=== PATIENT | female | born 1955 | race Caucasian/White ===

== ENCOUNTER 2017-09-23 19:14 | Observation (INO) | payer BC ==
--- NOTE | 2017-09-23 19:33 | EDM.PDOC ---
ED HPI GENERAL MEDICAL PROBLEM - General Chief Complaint: General Stated Complaint: dizzy, nausea, chest pain Time Seen by Provider: 09/23/17 19:20 Source of Information: Reports: Patient, Family (), Old Records ([facility] chart/EMR) History Limitations: Reports: No Limitations - History of Present Illness INITIAL COMMENTS - FREE TEXT/NARRATIVE: The patient was brought to the emergency room via private automobile by her for evaluation of 5/10 left-sided sharp chest pain with symptoms occurring on an intermittent basis for the last several days. Today's symptoms reappeared at about 19:00 hours this evening with a blood pressure of 188/107 at that time. The patient did take 2 coated baby aspirin with onset of the above symptoms, which include some additional exacerbation of her chronic dizziness and some mild nausea. He has also noticed some increased dependent edema during the last few months. The patient denies any other chest pain/ pressure, heart flutter, orthostasis, orthopnea, diaphoresis, paresthesias, recent decreased exercise tolerance, or any other anginal-type symptoms. No recent history of abdominal pain, heartburn, nausea, diarrhea, melena, gross hematochezia, or any food intolerance, including fatty foods, etc. with his last bowel movement normal at about 7 PM this evening. The patient also denies any recent fever, cough, wheezing, dyspnea, etc. with no known previous exposure to infection despite mild fever in the emergency room today. No history of recent headaches, visual changes, diplopia, change in mental status, or other change in neurological status. Onset: Sudden, Gradual Onset Date: 09/23/17 Onset Time: 19:00 Duration: Day(s): (As above) Location: Reports: Chest. Denies: Head, Face, Neck, Abdomen, Back, Pelvis, Upper Extremity, Left, Upper Extremity, Right, Lower Extremity, Left, Generalized, Radiates to Quality: Reports: Same as Previous Episode, Sharp Severity: Moderate Improves with: Reports: None Worsens with: Reports: None Context: Reports: Other (As above) Associated Symptoms: Reports: Chest Pain. 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: Aspirin (As above) Left Chest Pain Score (Numeric/FACES): 5 - Related Data Allergies Allergy/AdvReac Type Severity Reaction Status Date / Time amoxicillin trihydrate Allergy Unknown Other Verified 09/23/17 19:21 [From Augmentin] hydrocodone bitartrate Allergy Unknown Other Verified 09/23/17 19:21 [From Lortab] potassium clavulanate Allergy Unknown Other Verified 09/23/17 19:21 [From Augmentin] Home Meds: Home Meds FLUoxetine HCl [Prozac] 20 mg PO DAILY 05/11/15 [History] Omeprazole/Sodium Bicarbonate [Zegerid 20 MG] 20 mg PO DAILY 05/11/15 [History] Past Medical History HEENT History: Reports: Impaired Vision, Other (See Below). Denies: Allergic Rhinitis, Cataract, Glaucoma, Hard of Hearing, Macular Degeneration, Retinal Detachment Other HEENT History: She wears glasses Cardiovascular History: Reports: Heart Murmur, Hypertension, Other (See Below). Denies: Afib, Aneurysm, Arrhythmia, Blood Clots/VTE/DVT, CAD, Heart Failure, High Cholesterol, RI, PVD, Syncope Other Cardiovascular History: Benign heart murmur as a child with spontaneous resolution; borderline hypertension not requiring medical therapy to this point Respiratory History: Reports: Asthma, Intubation, Previous. Denies: Bronchitis , Recurrent, COPD, PE, Pneumonia, Recurrent, Pneumothorax, Sleep Apnea Gastrointestinal History: Reports: Cholelithiasis, Colon Polyp, Diverticulosis, Gastritis, GERD, Other (See Below). Denies: Celiac Disease, Chronic Constipation, Chronic Diarrhea, GI Bleed, Hepatitis, Helicobacter Pylori, Hiatal Hernia, Irritable Bowel Syndrome, Jaundice, Pancreatitis, PUD Other Gastrointestinal History: Hyperplastic colonic polyp at the hepatic flexure 09/09/04; recurrent hyperplastic gastric polyps initially diagnosed on ; previous history of diverticulitis with diverticulosis in the sigmoid region; History of fatty liver; esophagitis Genitourinary History: Reports: None. Denies: Acute Renal Failure, Chronic Renal Insuffiency, Renal Calculus, STD, Urinary Incontinence, UTI, Recurrent [employer] WORKER History: Reports: Dysfunctional Uterine Bleeding, Polycystic Ovaries, . Denies: Endometriosis, Fibroids, Spontaneous : 3 Para: 3 (Full term without complications during pregnancies or deliveries) LMP (Approximate): Menopausal (At age 54) Musculoskeletal History: Reports: Arthritis, Back Pain, Chronic, Fracture, Neck Pain, Chronic, Osteoarthritis, Other (See Below). Denies: Amputation, Gout, Osteoporosis, RA, SLE Other Musculoskeletal History: Right rotator cuff tear requiring surgery as below; left hand fourth finger tuft fracture on 05/01/08 Neurological History: Reports: Headaches, Chronic, Migraines, Vertigo, Other ( See Below). Denies: Cerebral Aneurysms, Concussion, CVA, Head Trauma, MS, Neuropathy, Peripheral, Parkinson's, Seizure, TIA Other Neuro History: Borderline Cerebral microvascular disease CT scan Psychiatric History: Reports: Anxiety, Depression. Denies: Abuse, Victim of, ADD, ADHD, Addiction, Psych Hospitalization(s), PTSD, Suicide Attempt, Suicidal Ideation Endocrine/Metabolic History: Reports: Obesity/BMI 30+. Denies: Diabetes, Type I , Diabetes, Type II, Diabetes Mellitus, Type 3c, Hypothyroidism, IDDM, Osteoporosis Hematologic History: Reports: None. Denies: Anemia, Blood Transfusion(s), Iron Deficiency Immunologic History: Reports: None. Denies: AIDS, HIV, SLE Oncologic (Cancer) History: Reports: None. Denies: Basal Cell Carcinoma, Breast , Colon, Hodgkin's Lymphoma, Leukemia, Lymphoma, Malignant Melanoma, Non-Hodgkin 's Lymphoma, Ovarian, Squamous Cell Carcinoma, Uterine Dermatologic History: Reports: None. Denies: Eczema, Urticaria - Infectious Disease History Infectious Disease History: Reports: Chicken Pox, Measles, Mumps, Scarlet Fever. Denies: C-Difficile, Meningitis, Mononucleosis, MRSA, Rheumatic Fever, Rubella, Shingles, VRE - Past Surgical History Head Surgeries/Procedures: Reports: None HEENT Surgical History: Reports: Adenoidectomy, Oral Surgery, Tonsillectomy, Other (See Below). Denies: Cataract Surgery, Eye Surgery, Laser Surgery, LASIK , Myringotomy w Tube(s), Naso-Sinus Surgery Other HEENT Surgeries/Procedures: Tonsillectomy and adenoidectomy at about age 5 ; [place] teeth extraction 4 in the Cardiovascular Surgical History: Reports: None. Denies: Varicose, Vascular Surgery Respiratory Surgical History: Reports: None. Denies: Thoracentesis GI Surgical History: Reports: Cholecystectomy, Colonoscopy, EGD, Polypectomy, Other (See Below). Denies: Appendectomy, Hernia, Abdominal, Hernia, Inguinal, Hernia Repair/Other Other GI Surgeries/Procedures: Colonoscopy with polypectomy at the hepatic flexure on 09/09/04 with follow-up colonoscopy on 08/31/08; initial EGD with gastric polyp excision on 10/23/03 with repeat EGD gastric polypectomy on 08/31/08 ; upper scopic cholecystectomy with adhesiolysis on 09/23/04 Female Surgical History: Reports: None. Denies: Breast Biopsy, Cystoscopy, D &C, Hysterectomy, Oophorectomy, Tubal Ligation Endocrine Surgical History: Reports: None. Denies: Thyroid Biopsy Neurological Surgical History: Denies: C-Spine, Discectomy, Intracranial, Laminectomy, Lumbar Spine, Sacral Spine, Spinal Fusion, Vertebroplasty Musculoskeletal Surgical History: Reports: Ganglion Cyst (Right dorsal ganglion cyst excision at about age 8), Shoulder Surgery (Open right rotator cuff repair in 2008). Denies: Amputation, Arthroscopic Knee, Arthroscopic Procedure, Carpal Tunnel, Hip Replacement, Joint Replacement, ORIF Oncologic Surgical History: Reports: None Dermatological Surgical History: Reports: None - Past Imaging History Past Imaging History: Reports: CAT Scan (CT of the brain on 01/24/14 with previous evaluation on 02/06/10; CT of the abdomen and pelvis on 05/16/15; CT of the neck soft tissue evaluation on 11/11/16;), Mammogram (Last mammogram on ), MRI (MRI of the right shoulder on 12/05/08), Ultrasound (Right axillary ultrasound on 10/21/13; multiple previous pelvic ultrasounds since 12/27/02 with last evaluation on 10/14/06; abdominal and additional gallbladder ultrasound on 08/13/04) Social & Family History - Family History HEENT: Reports: None. Denies: Allergic Rhinitis, Glaucoma, Macular Degeneration , Retinal Detachment Cardiac: Reports: Aneurysm, CAD, Hypertension, RI, Other (See Below). Denies: Arrhythmia, Blood Clots/VTE/DVT, Bypass, Heart Failure, Heart Murmur, High Cholesterol, Pacemaker, Stent, Syncope Other Cardiac Family History: Father was history of RI 2 at age 55 with no procedures required; AAA repair in his 60s; hypertension in parents; Respiratory: Reports: None. Denies: Asthma, COPD, PE, Pneumothorax, Sleep Apnea GI: Reports: Colon Polyps, GI bleed, PUD, Other (See Below). Denies: Celiac Disease, Cholelithiasis, GERD, Hiatal Hernia, Inflammatory Bowel Disease, Irritable Bowel Syndrome, Pancreatitis Other GI Family History: Father with history of GI bleed secondary to peptic ulcer disease: Father with history of colonic polyps : Reports: None. Denies: Dialysis, Renal Calculus, Renal Disease/ Insufficiency OBGYN: Reports: None. Denies: Dysfunctional uterine bleeding, Endometriosis, Recurrent Spontaneous Musculoskeletal: Reports: None. Denies: Gout, RA, SLE Neurological: Reports: Alzheimers Disease, Dementia, Parkinson's, Other (See Below). Denies: Cerebral Aneurysms, CVA, Migraines, MS, Seizure, TIA Other Neurological Family History: Mother with Alzheimer's disease; father with migraine headaches; Mom with Parkinson's disease Psychiatric: Reports: None. Denies: Abuse, Victim of, ADD, ADHD, Anxiety, Depression, Psych Hospitalization(s), PTSD, Suicide Attempt Endocrine/Metabolic: Reports: Diabetes, type II, Hypothyroidism, Other (See Below). Denies: Diabetes, Type I, IDDM Other Endocrine/Metabolic Family History: Mother with hypothyroidism; parents with AODM Hematologic: Reports: None. Denies: Anemia, B12 Deficiency, SLE Immunologic: Reports: None. Denies: AIDS, HIV, SLE Dermatologic: Reports: None. Denies: Eczema, Psoriasis Oncologic: Reports: Breast, Lung, Other (See Below). Denies: Colon, Hodgkin's Lymphoma, Leukemia, Metastatic, Non-Hodgkin's Lymphoma, Ovarian, Prostate, Skin , Uterine Other Oncologic Family History: Father with fatal lung cancer at age 75 with history of tobacco use; Maternal aunt with breast cancer in her 50s; maternal aunt with fatal stomach cancer in her 70s - Tobacco Use Smoking Status *Q: Former Smoker Tobacco Use Within Last Twelve Months: Cigarettes Years of Tobacco use: 5 Packs/Tins Daily: 2 (Smoked between ages 14 and 19) Used Tobacco, but Quit: Yes Smoking Cessation Information Provided To Patient: No Second Hand Smoke Exposure: No Second Hand Smoke Education Provided: No - Caffeine Use Caffeine Use: Reports: Coffee (4 cups per day), Soda (1 soda per week). 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 Denies: Fever, Chills, Malaise, Weakness , Fatigue, Night Sweats, Diaphoresis, Decreased Appetite, Weight Loss, Weight Gain HEENT: Reports: Glasses, Vertigo (Chronic). Denies: Contact Lenses, Dental Pain , Ear Pain, Eye Pain, Hearing Loss, Rhinitis, Sinus Problem, Throat Pain, Throat Swelling, Vision Change Respiratory: Reports: No Symptoms. Denies: Shortness of Breath, Wheezing, Pleuritic Chest Pain, Cough Cardiovascular: Reports: Chest Pain, Blood Pressure Problem, Edema, Lightheadedness. Denies: Claudication, Dyspnea on Exertion, Orthopnea, Palpitations, Syncope Endocrine: Reports: No Symptoms. Denies: Fatigue GI/Abdominal: Reports: Nausea. Denies: Abdominal Pain, Anorexia, Black Stool, Bloody Stool, Constipation, Diarrhea, Decreased Appetite, Difficulty Swallowing , Distension, Flatus, Hematemesis, Hematochezia, Melena, Stool Incontinence, Vomiting : Reports: No Symptoms. Denies: Discharge, Dysuria, Flank Pain, Frequency, Hematuria, Incontinence, Pain, Urgency, Urinary Retention Musculoskeletal: Reports: No Symptoms. Denies: Neck Pain, Shoulder Pain, Arm Pain, Back Pain, Leg Pain Skin: Reports: No Symptoms. Denies: Diaphoresis, Wound Neurological: Reports: Dizziness. Denies: Confusion, Headache, Numbness, Paresthesia, Pre-Existing Deficit, Tingling, Weakness Psychiatric: Reports: No Symptoms. Denies: Agitation, Anxiety, Confusion, Depression, Hallucinations, Suicidal Ideation Hematologic/Lymphatic: Reports: No Symptoms Immunologic: Reports: No Symptoms ED EXAM, GENERAL - Physical Exam Exam: See Below Exam Limited By: No Limitations General Appearance: Alert, WD/WN, No Apparent Distress Eye Exam: Bilateral Eye: EOMI, Normal Inspection (No nystagmus), PERRL Ears: Normal External Exam, Normal Canal, Hearing Grossly Normal, Normal TMs Nose: Normal Inspection, Normal Mucosa, No Blood Throat/Mouth: Normal Inspection, Normal Lips, Normal Teeth, Normal Gums, Normal Oropharynx, Normal Voice, No Airway Compromise. No: Dysphagia, Perioral Cyanosis Head: Atraumatic, Normocephalic. No: Facial Swelling, Facial Tenderness, Sinus Tenderness Neck: Normal Inspection, Supple, Non-Tender, Full Range of Motion. No: Carotid Bruit, Lymphadenopathy (L), Lymphadenopathy (R), Thyromegaly Respiratory/Chest: No Respiratory Distress, Lungs Clear, Normal Breath Sounds, No Accessory Muscle Use, Chest Non-Tender. No: Pleural Rub, Retractions Cardiovascular: Normal Peripheral Pulses, Regular Rate, Rhythm, No Edema, No Gallop, No JVD, No Murmur, No Rub. No: Gallop/S3, Gallop/S4, Friction Rub Peripheral Pulses: 4+: Radial (L), Radial (R), Dorsalis Pedis (L), Dorsalis Pedis (R) GI/Abdominal: Normal Bowel Sounds, Soft, Non-Tender, No Organomegaly, No Distention, No Abnormal Bruit, No Mass, Pelvis Stable. No: Guarding (Female) Exam: Deferred Rectal (Female) Exam: Deferred Back Exam: Normal Inspection, Full Range of Motion. No: CVA Tenderness (L), CVA Tenderness (R), Muscle Spasm Extremities: Normal Range of Motion, Non-Tender, Normal Capillary Refill, Pedal Edema (+1 bilateral pedal/pretibial edema). No: Rony's Sign Neurological: Alert, Oriented, CN II-XII Intact, Normal Cognition, Normal Gait, Normal Reflexes (Negative Babinski's), No Motor/Sensory Deficits Psychiatric: Normal Affect, Normal Mood Skin Exam: Warm, Dry, Intact, Normal Color, No Rash. No: Diaphoretic, Ecchymosis, Wound/Incision Lymphatic: No Adenopathy EKG INTERPRETATION EKG Date: 09/23/17 Time: 19:37 Rhythm: NSR Rate (Beats/Min): 85 [place]: Normal (Left cardiac axis) P-Wave: Enlarged (Mild Diffuse biphasic P waves with poor R-wave progression in the anterior leads) QRS: Wide (QRS interval of 0.09 seconds representing repolarization changes with T-wave inversion in lead V1) ST-T: Normal QT: Normal IA/PQ Interval: 0.21 seconds representing a first degree AV block Comparison: NA - No Prior EKG EKG Interpretation Comments: 1. No acute ischemic changes 2. First-degree AV block 3. Repolarization changes 4. Left atrial enlargement Course - Vital Signs Last Recorded V/S: Last Vital Signs Temp 37.5 C 09/23/17 19:15 Pulse 77 09/23/17 21:30 Resp 18 09/23/17 21:30 BP 176/90 H 09/23/17 21:30 Pulse Ox 97 09/23/17 21:30 Vital Signs - 24 hr 09/23/17 09/23/17 09/23/17 19:15 19:25 19:34 Temperature [ 37.5 C Temporal] Pulse, Peripheral Pulse, Peripheral [ Apical] Pulse, 81 96 Peripheral [ Left Brachial] Respiratory 20 20 Rate Blood Pressure Blood Pressure 195/97 H 168/85 H [Left Upper Arm ] O2 Sat by Pulse 96 96 100 Oximetry O2 Sat by Pulse Oximetry [ Nasal Cannula] 09/23/17 09/23/17 09/23/17 19:37 19:49 20:13 Temperature [ Temporal] Pulse, 82 Peripheral Pulse, Peripheral [ Apical] Pulse, Peripheral [ Left Brachial] Respiratory Rate Blood Pressure 168/85 H 180/106 H Blood Pressure [Left Upper Arm ] O2 Sat by Pulse Oximetry O2 Sat by Pulse 100 Oximetry [ Nasal Cannula] 09/23/17 09/23/17 09/23/17 20:15 20:30 20:45 Temperature [ Temporal] Pulse, Peripheral Pulse, 81 73 73 Peripheral [ Apical] Pulse, Peripheral [ Left Brachial] Respiratory 17 18 17 Rate Blood Pressure Blood Pressure 166/106 H 178/107 H 175/93 H [Left Upper Arm ] O2 Sat by Pulse 100 97 98 Oximetry O2 Sat by Pulse Oximetry [ Nasal Cannula] 09/23/17 09/23/17 09/23/17 21:00 21:15 21:30 Temperature [ Temporal] Pulse, Peripheral Pulse, 72 72 77 Peripheral [ Apical] Pulse, Peripheral [ Left Brachial] Respiratory 15 19 18 Rate Blood Pressure Blood Pressure 167/92 H 176/96 H 176/90 H [Left Upper Arm ] O2 Sat by Pulse 97 98 97 Oximetry O2 Sat by Pulse Oximetry [ Nasal Cannula] - Orders/Labs/Meds Orders: Active Orders 24 hr Category Date Time Status Cardiac Monitoring [RC] . DIRECTED Care 09/23/17 19:34 Active EKG Documentation Completion [RC] ASDIRECTED Care 09/23/17 19:34 Active Oxygen Therapy, ED [RC] CONTINUOUS Care 09/23/17 19:34 Active Peripheral IV Care [RC] . DIRECTED Care 09/23/17 19:34 Active Pulse Oximetry [RC] CONTINUOUS Care 09/23/17 19:34 Active Up With Assistance [RC] PFP Care 09/23/17 19:34 Active Vital Signs [RC] PFP Care 09/23/17 19:34 Active Nothing per Oral Now Diet [DIET] Diet 09/23/17 Breakfast Active Chest 1V Frontal [CR] Stat Exams 09/23/17 19:34 Taken CULTURE STREP A CONFIRMATION [] Stat Lab 09/23/17 20:43 Results STREP SCRN A RAPID W CULT CONF [] Stat Lab 09/23/17 20:43 Results Nitroglycerin [Nitrostat] Med 09/23/17 19:52 Stat 0.4 mg SL ONETIME STA Sodium Chloride 0.9% [Saline Flush] Med 09/23/17 19:34 Active 10 ml FLUSH ASDIRECTED PRN Obtain Past Medical Record [OM.PC] Urgent Oth 09/23/17 19:34 Active Peripheral IV Insertion Adult [OM.PC] Stat Oth 09/23/17 19:34 Ordered Resuscitation Status Stat Resus Stat 09/23/17 19:34 Ordered Medication Orders Nitroglycerin (Nitrostat) 0.4 mg SL ONETIME STA Stop: 09/24/17 19:53 Last Admin: 09/23/17 20:13 Dose: 0.4 mg Sodium Chloride (Saline Flush) 10 ml FLUSH ASDIRECTED PRN PRN Reason: Keep Vein Open Last Admin: 09/23/17 19:50 Dose: 10 ml Labs: Laboratory Tests 09/23/17 09/23/17 09/23/17 Range/Units 20:15 20:15 20:15 WBC 8.7 (4.0-10.2) K/uL RBC 4.68 (3.77-5.09) M/uL Hgb 14.0 (11.7-15.5) g/dL Hct 40.7 (34.0-46.0) % MCV 87.0 (84.0-98.0) fL MCH 29.9 (28.2-33.3) pg MCHC 34.4 (31.7-36.0) g/dL RDW 12.7 (11.2-14.1) % Plt Count 273 (150-350) K/uL Neut % (Auto) 54.5 (45.0-80.0) % Lymph % (Auto) 37.1 (10.0-50.0) % [place] % (Auto) 5.4 (2.0-14.0) % Eos % (Auto) 2.5 (0.0-5.0) % Baso % (Auto) 0.5 (0.0-2.0) % Neut # (Auto) 4.76 (1.40-7.00) K/uL Lymph # (Auto) 3.24 (0.50-3.50) K/uL [place] # (Auto) 0.47 (0.00-1.00) K/uL Eos # (Auto) 0.22 (0.00-0.50) K/uL Baso # (Auto) 0.04 (0.00-0.20) K/uL PT 9.9 (9.8-11.7) SEC INR 0.9 APTT 23.1 (22.1-29.8) SEC D-Dimer, Quantitative 193 (0-400) ng/mL Sodium (136-145) mmol/L Potassium (3.5-5.1) mmol/L Chloride (98-107) mmol/L Carbon Dioxide (21.0-32.0) mmol/L BUN (7-18) mg/dL Creatinine (0.51-1.17) mg/dL Est Cr Clr Drug Dosing mL/min Estimated GFR (MDRD) mL/min Glucose (74-106) mg/dL Lactic Acid (0.4-2.0) mmol/L Uric Acid (2.6-7.2) mg/dL Calcium (8.5-10.1) mg/dL Magnesium (1.8-2.4) mg/dL Total Bilirubin (0.2-1.0) mg/dL AST (15-37) U/L ALT (12-78) U/L Alkaline Phosphatase (46-116) IU/L Creatine Kinase (26-308) U/L Creatine Kinase Index (0.0-2.5) % CK-MB (CK-2) (0.00-3.60) ng/mL Troponin I (0.000-0.056) ng/mL NT-Pro-B Natriuret Pep (0-125) pg/mL Total Protein (6.4-8.2) g/dL Albumin (3.4-5.0) g/dL TSH, Ultra Sensitive (0.358-3.740) mIU/mL 09/23/17 09/23/17 Range/Units 20:15 20:15 WBC (4.0-10.2) K/uL RBC (3.77-5.09) M/uL Hgb (11.7-15.5) g/dL Hct (34.0-46.0) % MCV (84.0-98.0) fL MCH (28.2-33.3) pg MCHC (31.7-36.0) g/dL RDW (11.2-14.1) % Plt Count (150-350) K/uL Neut % (Auto) (45.0-80.0) % Lymph % (Auto) (10.0-50.0) % [place] % (Auto) (2.0-14.0) % Eos % (Auto) (0.0-5.0) % Baso % (Auto) (0.0-2.0) % Neut # (Auto) (1.40-7.00) K/uL Lymph # (Auto) (0.50-3.50) K/uL [place] # (Auto) (0.00-1.00) K/uL Eos # (Auto) (0.00-0.50) K/uL Baso # (Auto) (0.00-0.20) K/uL PT (9.8-11.7) SEC INR APTT (22.1-29.8) SEC D-Dimer, Quantitative (0-400) ng/mL Sodium 138 (136-145) mmol/L Potassium 3.9 (3.5-5.1) mmol/L Chloride 101 (98-107) mmol/L Carbon Dioxide 24.4 (21.0-32.0) mmol/L BUN 14 (7-18) mg/dL Creatinine 0.86 (0.51-1.17) mg/dL Est Cr Clr Drug Dosing 60.25 mL/min Estimated GFR (MDRD) > 60 mL/min Glucose 160 H (74-106) mg/dL Lactic Acid 1.8 (0.4-2.0) mmol/L Uric Acid 4.4 (2.6-7.2) mg/dL Calcium 9.1 (8.5-10.1) mg/dL Magnesium 1.9 (1.8-2.4) mg/dL Total Bilirubin 0.3 (0.2-1.0) mg/dL AST 16 (15-37) U/L ALT 26 (12-78) U/L Alkaline Phosphatase 84 (46-116) IU/L Creatine Kinase 138 (26-308) U/L Creatine Kinase Index 0.9 (0.0-2.5) % CK-MB (CK-2) 1.20 (0.00-3.60) ng/mL Troponin I 0.002 (0.000-0.056) ng/mL NT-Pro-B Natriuret Pep 41 (0-125) pg/mL Total Protein 7.2 (6.4-8.2) g/dL Albumin 3.9 (3.4-5.0) g/dL TSH, Ultra Sensitive 4.982 H (0.358-3.740) mIU/mL Meds: Medications Generic Name Dose Route Start Last Admin Trade Name Freq PRN Reason Stop Dose Admin Nitroglycerin 0.4 mg 09/23/17 19:52 09/23/17 20:13 Nitrostat SL 09/24/17 19:53 0.4 mg ONETIME STA Administration Sodium Chloride 10 ml 09/23/17 19:34 09/23/17 19:50 Saline Flush FLUSH 10 ml ASDIRECTED PRN Administration Keep Vein Open Discontinued Medications Generic Name Dose Route Start Last Admin Trade Name Freq PRN Reason Stop Dose Admin Acetaminophen 650 mg 09/23/17 20:15 09/23/17 20:21 Tylenol PO 09/23/17 20:16 650 mg NOW ONE Administration Aspirin 324 mg 09/23/17 19:34 09/23/17 19:49 Aspirin CHEW 09/23/17 19:35 324 mg ONETIME ONE Administration Famotidine 40 mg 09/23/17 19:34 09/23/17 19:49 Pepcid IVPUSH 09/23/17 19:35 40 mg ONETIME ONE Administration Metoprolol Tartrate 2.5 mg 09/23/17 19:34 09/23/17 19:49 Lopressor IVPUSH 09/23/17 19:35 2.5 mg ONETIME ONE Administration Ticagrelor 180 mg 09/23/17 19:34 09/23/17 19:49 Brilinta PO 09/23/17 19:35 180 mg ONETIME ONE Administration Ticagrelor Confirm 09/23/17 19:45 09/23/17 20:10 Brilinta Administered 09/23/17 19:46 Not Given Dose 90 mg PO .[place] ONE - Radiology Interpretation Free Text/Narrative:: youth nutritional monitor shows normal sinus rhythm with heart rate in the 80s initially with no ectopy or arrhythmia with improvement to the 70s after beta patrick Chest x-ray, portable, shows moderate pulmonary obstructive disease with no cardiomegaly, CHF, pulmonary infiltrates, pneumothorax, etc. Departure - Departure Time of Disposition: 21:30 Disposition: Refer to Observation Condition: Good Clinical Impression: Hyperglycemia, Peptic reflux disease, First degree AV block, Hypothyroidism ( acquired), URI, acute, Mixed anxiety depressive disorder Chest pain Qualifiers: Chest pain type: precordial pain Qualified Code(s): R07.2 - Precordial pain Hypertension Qualifiers: Hypertension type: essential hypertension Qualified Code(s): I10 - Essential ( primary) hypertension Asthma Qualifiers: Asthma severity: mild Asthma persistence: intermittent Asthma complication type : uncomplicated Qualified Code(s): J45.20 - Mild intermittent asthma, uncomplicated Osteoarthritis Qualifiers: Osteoarthritis location: multiple joints Osteoarthritis type: primary Qualified Code(s): M15.0 - Primary generalized (osteo)arthritis - Discharge Information - Problem List & Annotations (1) Chest pain SNOMED Code(s): 91902735 Code(s): R07.9 - CHEST PAIN, UNSPECIFIED Status: Acute Priority: High Current Visit: Yes Onset Date: 09/23/17 Annotation/Comment:: Chest pain protocol initiated at time of patient's arrival to the emergency room. Overall good response to above therapy with patient chest pain-free prior to admission. Initiate standard rule out RI orders with cardiology consultation depending on her clinical course. Anticipate outpatient Cardiolite stress test by [facility] after discharge. Note history of fatty liver with lipid panel to be conducted in the a.m. Qualifiers: Chest pain type: precordial pain Qualified Code(s): R07.2 - Precordial pain (2) First degree AV block SNOMED Code(s): 975294095 Code(s): I44.0 - ATRIOVENTRICULAR BLOCK, FIRST DEGREE Status: Acute Priority: Medium Current Visit: Yes Onset Date: 09/23/17 Annotation/ Comment:: Newly diagnosed. Observe for now. EKG in the a.m. (3) Hypertension SNOMED Code(s): 00944632 Code(s): I10 - ESSENTIAL (PRIMARY) HYPERTENSION Status: Acute Priority: High Current Visit: Yes Onset Date: ~09/23/17 Annotation/Comment:: Elevated blood pressures in the past with no previous treatment. IV Lopressor and sublingual nitroglycerin given in the emergency room. Initiate low-dose beta patrick therapy with caution secondary to her asthma and first-degree AV block. Qualifiers: Hypertension type: essential hypertension Qualified Code(s): I10 - Essential (primary) hypertension (4) Asthma SNOMED Code(s): 071130526 Code(s): J45.909 - UNSPECIFIED ASTHMA, UNCOMPLICATED Status: Chronic Priority: Medium Current Visit: Yes Annotation/Comment:: Stable by history with no recent bronchitic type symptoms despite mild fever today. Note patient has not required any bronchodilators or other medical therapy for her asthma for quite some time. Consider PFTs depending on her clinical course Qualifiers: Asthma severity: mild Asthma persistence: intermittent Asthma complication type: uncomplicated Qualified Code(s): J45.20 - Mild intermittent asthma, uncomplicated (5) Hyperglycemia SNOMED Code(s): 43978258 Code(s): R73.9 - HYPERGLYCEMIA, UNSPECIFIED Status: Chronic Priority: Medium Current Visit: Yes Annotation/Comment:: Intermittent hyperglycemia in the past per hospital records with no true AODM. Glycosylated hemoglobin in the a.m. (6) Hypothyroidism (acquired) SNOMED Code(s): 006414805 Code(s): E03.9 - HYPOTHYROIDISM, UNSPECIFIED Status: Acute Priority: Medium Current Visit: Yes Onset Date: 09/23/17 Annotation/Comment:: Newly diagnosed hypothyroidism today. Initiate Synthroid therapy. TSH to be repeated in about 4 weeks (7) Mixed anxiety depressive disorder SNOMED Code(s): 171625824 Code(s): F41.8 - OTHER SPECIFIED ANXIETY DISORDERS Status: Chronic Priority: Medium Current Visit: Yes Annotation/Comment:: Stable by history (8) Osteoarthritis SNOMED Code(s): 569664903 Code(s): M19.90 - UNSPECIFIED OSTEOARTHRITIS, UNSPECIFIED SITE Status: Chronic Priority: Medium Current Visit: Yes Annotation/Comment:: Stable by history Qualifiers: Osteoarthritis location: multiple joints Osteoarthritis type: primary Qualified Code(s): M15.0 - Primary generalized (osteo)arthritis (9) Peptic reflux disease SNOMED Code(s): 05299734 Code(s): K21.9 - GASTRO-ESOPHAGEAL REFLUX DISEASE WITHOUT ESOPHAGITIS Status: Chronic Priority: Medium Current Visit: Yes Annotation/Comment:: Table by history. High-dose IV Pepcid given in the emergency room. 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 Consider repeat EGD depending on her cardiac workup as above (10) URI, acute SNOMED Code(s): 82405722 Code(s): J06.9 - ACUTE UPPER RESPIRATORY INFECTION, UNSPECIFIED Status: Acute Priority: Medium Current Visit: Yes Onset Date: ~09/23/17 Annotation/Comment:: Mild fever in the emergency room today with negative strep and influenza screens. Observe for now - Problem List Review Problem List Initiated/Reviewed/Updated: Yes - My Orders Last 24 Hours: My Active Orders 09/23/17 19:34 Cardiac Monitoring [RC] . DIRECTED EKG Documentation Completion [RC] ASDIRECTED Oxygen Therapy, ED [RC] CONTINUOUS Peripheral IV Care [RC] . DIRECTED Pulse Oximetry [RC] CONTINUOUS Up With Assistance [RC] PFP Vital Signs [RC] PFP Chest 1V Frontal [CR] Stat Sodium Chloride 0.9% [Saline Flush] 10 ml FLUSH ASDIRECTED PRN Obtain Past Medical Record [OM.PC] Urgent Peripheral IV Insertion Adult [OM.PC] Stat Resuscitation Status Stat 09/23/17 19:52 Nitroglycerin [Nitrostat] 0.4 mg SL ONETIME STA 09/23/17 20:43 CULTURE STREP A CONFIRMATION [RM] Stat STREP SCRN A RAPID W CULT CONF [RM] Stat 09/23/17 Breakfast Nothing per Oral Now Diet [DIET] - Assessment/Plan Admission H&P: Please use this note as an admission H&P Last 24 Hours: My Active Orders 09/23/17 19:34 Cardiac Monitoring [RC] . DIRECTED EKG Documentation Completion [RC] ASDIRECTED Oxygen Therapy, ED [RC] CONTINUOUS Peripheral IV Care [RC] . DIRECTED Pulse Oximetry [RC] CONTINUOUS Up With Assistance [RC] PFP Vital Signs [RC] PFP Chest 1V Frontal [CR] Stat Sodium Chloride 0.9% [Saline Flush] 10 ml FLUSH ASDIRECTED PRN Obtain Past Medical Record [OM.PC] Urgent Peripheral IV Insertion Adult [OM.PC] Stat Resuscitation Status Stat 09/23/17 19:52 Nitroglycerin [Nitrostat] 0.4 mg SL ONETIME STA 09/23/17 20:43 CULTURE STREP A CONFIRMATION [RM] Stat STREP SCRN A RAPID W CULT CONF [RM] Stat 09/23/17 Breakfast Nothing per Oral Now Diet [DIET] Assessment:: As above Plan: As above. Extensive precautions were given to the patient and her , who are in agreement with the treatment plan. The patient's condition is stable enough for observation status and general supervision.
[2017-09-23] MEDS ORDERED: Metoprolol Tartrate 5 MG/5 ML SDV IVPUSH ONE (19:34)
[2017-09-23] MEDS ORDERED: Sodium Chloride 0.9% 10 ML Syringe FLUSH PRN ×2 (19:34→22:16)
[2017-09-23] MEDS ORDERED: Aspirin 81 MG Tab.Chew CHEW ONE (19:34)
[2017-09-23] MEDS ORDERED: Ticagrelor 90 MG Tab PO ONE ×2 (19:34→19:45)
[2017-09-23] MEDS ORDERED: Famotidine 20 MG/2 ML SDV IVPUSH ONE (19:34)
[2017-09-23] MEDS ORDERED: Nitroglycerin 0.4 MG Tab.SL SL STA (19:52)
[2017-09-23] MEDS ORDERED: Acetaminophen 325 MG Tab PO ONE (20:15)
[2017-09-23 20:34] LABS: CHLORIDE,CL 101 mmol/L (98-107); SODIUM,NA 138 mmol/L (136-145)
[2017-09-23] MEDS ORDERED: Acetaminophen 325 MG Tab PO PRN (22:16)
[2017-09-23] MEDS ORDERED: Temazepam 15 MG Cap PO PRN (22:16)
[2017-09-23] MEDS: Metoprolol Tartrate 50 MG Tab PO SCH (22:38)
[2017-09-24] MEDS ORDERED: Nitroglycerin 2% Oint 1 GM UD Packet TOP SCH (04:00)
[2017-09-24] MEDS ORDERED: Levothyroxine 50 MCG Tab PO SCH (07:30)
[2017-09-24] MEDS: Metoprolol Tartrate 50 MG Tab PO SCH (08:00)
[2017-09-24] MEDS ORDERED: FLUoxetine 20 MG Cap PO SCH (08:00)
[2017-09-24 08:18] LABS: CHLORIDE,CL 102 mmol/L (98-107); SODIUM,NA 139 mmol/L (136-145)
[2017-09-24] MEDS ORDERED: Lisinopril 10 MG Tab PO SCH (08:45)
--- NOTE | 2017-09-24 08:59 | PCM.DCSUM1 ---
Discharge Summary - Hospital Course HPI Initial Comments: See emergency room note/admission H&P Brief History: See emergency room note/admission H&P - Discharge Data Discharge Date: 09/24/17 Discharge Disposition: Home, Self-Care 01 Condition: Good - Discharge Diagnosis/Problem(s) (1) Chest pain SNOMED Code(s): 59506018 ICD Code: R07.9 - CHEST PAIN, UNSPECIFIED Status: Acute Priority: High Current Visit: Yes Onset Date: 09/23/17 Problem Details: Serial cardiac enzymes were negative for acute CO with negative EKG this morning. Note the patient did experience some nonspecific left chest discomfort with radiation to the left arm yesterday evening with no symptoms this morning. Secondary to her persistent hypertension and possible anginal complaints as above the patient was started on nitro paste therapy yesterday evening. She does have a problem with chronic headaches, however, with Nitropaste therapy discontinued this morning. Chest pain protocol was initiated at time of patient's arrival to the emergency room. Overall good response to above therapy with patient chest pain- free prior to admission. Outpatient Cardiolite stress test by [facility] in this facility. Note history of fatty liver with lipid panel confirming some dyslipidemia with Zocor to be initiated at discharge. Activity restrictions, etc. extensively discussed with the patient and her Qualifiers: Chest pain type: precordial pain Qualified Code(s): R07.2 - Precordial pain (2) First degree AV block SNOMED Code(s): 871804004 ICD Code: I44.0 - ATRIOVENTRICULAR BLOCK, FIRST DEGREE Status: Acute Priority: Medium Current Visit: Yes Onset Date: 09/23/17 Problem Details: Newly diagnosed. Observe for now. EKG this morning showed stable first-degree AV block. Secondary to some mild bradycardia this morning's dose of Lopressor was stopped with low-dose Toprol XL at discharge (3) Hypertension SNOMED Code(s): 35285591 ICD Code: I10 - ESSENTIAL (PRIMARY) HYPERTENSION Status: Acute Priority: High Current Visit: Yes Onset Date: ~09/23/17 Problem Details: Continue refractory blood pressures during this hospitalization with lisinopril initiated this morning. This is also beneficial for her newly diagnosed borderline diabetes. Elevated blood pressures in the past with no previous treatment. IV Lopressor and sublingual nitroglycerin given in the emergency room. Blood pressure still somewhat elevated at discharge however somewhat improved despite discontinuation of nitro paste therapy earlier this morning. Qualifiers: Hypertension type: essential hypertension Qualified Code(s): I10 - Essential (primary) hypertension (4) Asthma SNOMED Code(s): 392427795 ICD Code: J45.909 - UNSPECIFIED ASTHMA, UNCOMPLICATED Status: Chronic Priority: Medium Current Visit: Yes Problem Details: Beta patrick therapy as above with caution secondary to her history of asthma. No recent bronchitic type symptoms despite mild fever on admission, however patient is afebrile today no leukocytosis, etc.. Note patient has not required any bronchodilators or other medical therapy for her asthma for quite some time. Consider PFTs depending on her clinical course Qualifiers: Asthma severity: mild Asthma persistence: intermittent Asthma complication type: uncomplicated Qualified Code(s): J45.20 - Mild intermittent asthma, uncomplicated (5) Hyperglycemia SNOMED Code(s): 12314340 ICD Code: R73.9 - HYPERGLYCEMIA, UNSPECIFIED Status: Chronic Priority: Medium Current Visit: Yes Problem Details: Intermittent hyperglycemia in the past per hospital records with glycosylated hemoglobin elevated to 6.7% indicating borderline AODM. Medical therapy for now with patient to be given strict heart healthy, 1800-calorie ADA diet at discharge. Weight loss in moderation advisable. Recommend repeating glycosylated hemoglobin in 3 months (6) Hypothyroidism (acquired) SNOMED Code(s): 263052135 ICD Code: E03.9 - HYPOTHYROIDISM, UNSPECIFIED Status: Acute Priority: Medium Current Visit: Yes Onset Date: 09/23/17 Problem Details: Newly diagnosed hypothyroidism on admission. Initiate Synthroid therapy on admission. TSH should be repeated in about 4 weeks (7) Mixed anxiety depressive disorder SNOMED Code(s): 055871052 ICD Code: F41.8 - OTHER SPECIFIED ANXIETY DISORDERS Status: Chronic Priority: Medium Current Visit: Yes Problem Details: Continue to observe closely by her regular providers. Stable by history. Note history of chronic headaches with patient possibly benefiting from further medication adjustment as headache prophylaxis, etc. For now we will initiate low-dose magnesium oxide , which should be beneficial for her chronic headaches, asthma, and hypertension with repeat magnesium level as per discharge instructions (8) Osteoarthritis SNOMED Code(s): 658739686 ICD Code: M19.90 - UNSPECIFIED OSTEOARTHRITIS, UNSPECIFIED SITE Status: Chronic Priority: Medium Current Visit: Yes Problem Details: Stable by history Qualifiers: Osteoarthritis location: multiple joints Osteoarthritis type: primary Qualified Code(s): M15.0 - Primary generalized (osteo)arthritis (9) Peptic reflux disease SNOMED Code(s): 98340626 ICD Code: K21.9 - GASTRO-ESOPHAGEAL REFLUX DISEASE WITHOUT ESOPHAGITIS Status: Chronic Priority: Medium Current Visit: Yes Problem Details: Stable by history. High-dose IV Pepcid given in the emergency room. 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 Consider repeat EGD depending on her cardiac workup as above and clinical course (10) URI, acute SNOMED Code(s): 17646282 ICD Code: J06.9 - ACUTE UPPER RESPIRATORY INFECTION, UNSPECIFIED Status: Acute Priority: Medium Current Visit: Yes Onset Date: ~09/23/17 Problem Details: Mild fever in the emergency room over afebrile at this time. Negative strep and influenza screens. Observe for now - Patient Summary/Data Operative Procedure(s) Performed: None Complications: None Consults: None Labs Pending at D/C: None Recommended Follow-up Testing/Procedures: As per discharge instructions Planned Operative Procedure(s) after DC: None Hospital Course: The patient was admitted to observation status with initiation of chest pain protocol in the emergency room and negative workup for acute CO as above. No complications during this hospitalization despite somewhat labile blood pressures and return of nonspecific left chest pain and left arm pain as above. Multiple medication adjustments during this hospitalization. Close follow-up by her regular provider as above and as per discharge instructions. Patient counseled on activity restrictions, strict compliance with diet, etc.. - Patient Instructions Diet: Heart Healthy Diet Diet, Other: 1800-calorie ADA, diverticulosis Activity: No Strenuous Activities (50% maximum exercise restriction until your cardiac status has been determined ) Driving: May Drive Today Showering/Bathing: May Shower Notify Provider of: Fever, Increased Pain, Nausea and/or Vomiting Other/Special Instructions: 1. Follow-up with your regular provider 1 week after Cardiolite stress test as below with recommended basic metabolic panel and magnesium level secondary to recent change in medications during this hospitalization. 2. Cardiolite stress test in this facility with Rosio Li MD at [facility] in [facility] with hospital to contact you with an exact date and time. 3. Weight loss in moderation with strict compliance with diabetic and low-fat, low-cholesterol diet. No strenuous activity until cleared by your regular provider. 4. Tylenol 650 mg by mouth every 4 hours and/or OTC ibuprofen 2-3 tabs by mouth every 6 hours with food as directed./needed. 5. Ice packs to head and neck, dark and quiet room, etc. as directed until headache resolves. 6. Recommend repeating TSH, LFTs and CPK in 4 weeks with recommended repeat glycosylated hemoglobin and lipid profile, etc. in 3 months. 7. Close follow-up of your blood pressure and pulses by your regular provider , including at time of Cardiolite stress test as above, etc. with recommended blood pressure and pulse check in about one week - Discharge Plan Prescriptions/Med Rec: Levothyroxine [Synthroid] 50 mcg PO ACBREAKFAST #60 tablet Lisinopril [Prinivil] 10 mg PO DAILY #30 tablet Magnesium Oxide 400 mg PO BEDTIME #30 tablet Metoprolol Succinate [Toprol XL] 25 mg PO BEDTIME #30 tab.er Simvastatin [Zocor] 10 mg PO BEDTIME #30 tablet Home Medications: Home Meds FLUoxetine HCl [Prozac] 20 mg PO DAILY 05/11/15 [History] Omeprazole/Sodium Bicarbonate [Zegerid 20 MG] 20 mg PO DAILY 05/11/15 [History] Acetaminophen [Tylenol] 650 mg PO Q4H PRN tablet 09/24/17 [Rx] Levothyroxine [Synthroid] 50 mcg PO ACBREAKFAST #60 tablet 09/24/17 [Rx] Lisinopril [Prinivil] 10 mg PO DAILY #30 tablet 09/24/17 [Rx] Magnesium Oxide 400 mg PO BEDTIME #30 tablet 09/24/17 [Rx] Metoprolol Succinate [Toprol XL] 25 mg PO BEDTIME #30 tab.er 09/24/17 [Rx] Simvastatin [Zocor] 10 mg PO BEDTIME #30 tablet 09/24/17 [Rx] Patient Handouts: Levothyroxine tablets, Hyperglycemia, [id number], Nonspecific Chest Pain, [id number], Hypertension, [id number]-[id number], Lisinopril tablets, Managing Your High Blood Pressure, Diabetes Mellitus and Food, Heart- Healthy Eating Plan, [id number]-go-Prcc Forms: ED Department Discharge Referrals: Cami Hewitt [employer] [Primary Care Provider] - - Discharge Summary/Plan Comment DC Time >30 min.: Yes (Coordination of care) Discharge Summary/Plan Comment: As above. Extensive precautions were given to the patient and her , who are agreement with the treatment plan. See Patient Instructions for further treatment and plan. - General Info Date of Service: 09/24/17 Admission Dx/Problem (Free Text: Chest pain Functional Status: Reports: Pain Controlled, Tolerating Diet, Ambulating, Urinating, New Symptoms. Denies: Incentive Spirometry Numeric/FACES Score: 0 - Review of Systems General: Reports: No Symptoms. Denies: Fever, Weakness, Fatigue, Malaise, Chills, Night Sweats, Appetite (Appetite good) HEENT: Reports: Headaches (Chronic intermittent), Rhinitis. Denies: Eye Pain, Glasses, Post Nasal Drip, Sinus Congestion, Sore Throat, Visual Changes Pulmonary: Reports: No Symptoms. Denies: Shortness of Breath, Pleuritic Chest Pain, Cough, Sputum, Hemoptysis, Wheezing Cardiovascular: Reports: Edema (Stable dependent). Denies: Chest Pain, Palpitations, Dyspnea on Exertion, Orthopnea, Lightheadedness Gastrointestinal: Reports: No Symptoms. Denies: Abdominal Pain, Constipation, Decreased Appetite, Diarrhea, Difficulty Swallowing, Flatus, Hematochezia, Melena, Nausea, Vomiting Genitourinary: Reports: No Symptoms. Denies: Dysuria, Frequency, Burning, Pain , Urgency, Incontinence, Hematuria, Retention, Flank Pain Musculoskeletal: Reports: No Symptoms. Denies: Neck Pain, Shoulder Pain, Arm Pain, Back Pain, Leg Pain Skin: Reports: No Symptoms. Denies: Diaphoresis Neurological: Reports: Headache. Denies: Confusion, Dizziness, Numbness, Paresthesia, Tingling, Weakness Psychiatric: Reports: No Symptoms. Denies: Confusion, Depression, Anxiety, Agitation, Hallucinations - Patient Data Vitals - Most Recent: Last Vital Signs Temp 36.9 C 09/24/17 07:00 Pulse 62 09/24/17 07:00 Resp 14 09/24/17 07:00 BP 161/85 H 09/24/17 07:00 Pulse Ox 100 09/24/17 07:00 Vital Signs - 24 hr 09/23/17 09/23/17 09/23/17 19:15 19:25 19:30 Temperature [ 37.5 C 37.5 C Temporal] Pulse, Peripheral Pulse, 73 Peripheral [ Apical] Pulse, 81 96 Peripheral [ Left Brachial] Respiratory 20 20 18 Rate Blood Pressure Blood Pressure 195/97 H 168/85 H 178/107 H [Left Upper Arm ] Blood Pressure [Right Upper Arm] O2 Sat by Pulse 96 96 97 Oximetry O2 Sat by Pulse Oximetry [ Nasal Cannula] 09/23/17 09/23/17 09/23/17 19:34 19:37 19:49 Temperature [ Temporal] Pulse, 82 Peripheral Pulse, Peripheral [ Apical] Pulse, Peripheral [ Left Brachial] Respiratory Rate Blood Pressure 168/85 H Blood Pressure [Left Upper Arm ] Blood Pressure [Right Upper Arm] O2 Sat by Pulse 100 Oximetry O2 Sat by Pulse 100 Oximetry [ Nasal Cannula] 09/23/17 09/23/17 09/23/17 20:13 20:15 20:30 Temperature [ Temporal] Pulse, Peripheral Pulse, 81 73 Peripheral [ Apical] Pulse, Peripheral [ Left Brachial] Respiratory 17 18 Rate Blood Pressure 180/106 H Blood Pressure 166/106 H 178/107 H [Left Upper Arm ] Blood Pressure [Right Upper Arm] O2 Sat by Pulse 100 97 Oximetry O2 Sat by Pulse Oximetry [ Nasal Cannula] 09/23/17 09/23/17 09/23/17 20:45 21:00 21:15 Temperature [ Temporal] Pulse, Peripheral Pulse, 73 72 72 Peripheral [ Apical] Pulse, Peripheral [ Left Brachial] Respiratory 17 15 19 Rate Blood Pressure Blood Pressure 175/93 H 167/92 H 176/96 H [Left Upper Arm ] Blood Pressure [Right Upper Arm] O2 Sat by Pulse 98 97 98 Oximetry O2 Sat by Pulse Oximetry [ Nasal Cannula] 09/23/17 09/23/17 09/23/17 21:30 22:16 22:38 Temperature [ Temporal] Pulse, 72 Peripheral Pulse, 77 Peripheral [ Apical] Pulse, Peripheral [ Left Brachial] Respiratory 18 Rate Blood Pressure 170/92 H Blood Pressure 176/90 H [Left Upper Arm ] Blood Pressure [Right Upper Arm] O2 Sat by Pulse 97 98 Oximetry O2 Sat by Pulse 98 Oximetry [ Nasal Cannula] 09/24/17 09/24/17 09/24/17 02:16 03:27 07:00 Temperature [ 36.4 C 36.9 C Temporal] Pulse, Peripheral Pulse, 66 62 62 Peripheral [ Apical] Pulse, Peripheral [ Left Brachial] Respiratory 16 14 14 Rate Blood Pressure Blood Pressure 174/82 H 176/89 H [Left Upper Arm ] Blood Pressure 161/85 H [Right Upper Arm] O2 Sat by Pulse 100 100 100 Oximetry O2 Sat by Pulse Oximetry [ Nasal Cannula] 09/24/17 09/24/17 09:27 11:12 Temperature [ 36.4 C Temporal] Pulse, Peripheral Pulse, 73 Peripheral [ Apical] Pulse, Peripheral [ Left Brachial] Respiratory Rate Blood Pressure 157/85 H Blood Pressure [Left Upper Arm ] Blood Pressure 164/80 H [Right Upper Arm] O2 Sat by Pulse 95 Oximetry O2 Sat by Pulse Oximetry [ Nasal Cannula] Weight - Most Recent: 87.6 kg I&O - Last 24 hours: Intake & Output 09/23/17 09/24/17 09/24/17 22:59 06:59 14:59 Intake Total 0 Output Total 500 400 Balance -500 -400 Imaging Impressions - Last 24 hrs: compliance quality performance analyst shows normal sinus rhythm with heart rates in the 60s to 80s with no ectopy or arrhythmia Chest x-ray, portable, on 09/23/17 shows moderate pulmonary obstructive disease with no cardiomegaly, CHF, pulmonary infiltrates, pneumothorax, etc. Lab Results - Last 24 hrs: Laboratory Results - last 24 hr 09/24/17 09/24/17 09/24/17 Range/Units 07:18 07:18 07:18 WBC 7.2 (4.0-10.2) K/uL RBC 4.84 (3.77-5.09) M/uL Hgb 14.4 (11.7-15.5) g/dL Hct 42.2 (34.0-46.0) % MCV 87.2 (84.0-98.0) fL MCH 29.8 (28.2-33.3) pg MCHC 34.1 (31.7-36.0) g/dL RDW 12.9 (11.2-14.1) % Plt Count 259 (150-350) K/uL Neut % (Auto) 59.7 (45.0-80.0) % Lymph % (Auto) 29.7 (10.0-50.0) % [place] % (Auto) 7.3 (2.0-14.0) % Eos % (Auto) 2.9 (0.0-5.0) % Baso % (Auto) 0.4 (0.0-2.0) % Neut # (Auto) 4.31 (1.40-7.00) K/uL Lymph # (Auto) 2.15 (0.50-3.50) K/uL [place] # (Auto) 0.53 (0.00-1.00) K/uL Eos # (Auto) 0.21 (0.00-0.50) K/uL Baso # (Auto) 0.03 (0.00-0.20) K/uL Sodium 139 (136-145) mmol/L Potassium 4.0 (3.5-5.1) mmol/L Chloride 102 (98-107) mmol/L Carbon Dioxide 29.3 (21.0-32.0) mmol/L BUN 12 (7-18) mg/dL Creatinine 0.77 (0.51-1.17) mg/dL Est Cr Clr Drug Dosing 67.29 mL/min Estimated GFR (MDRD) > 60 mL/min Glucose 127 H (74-106) mg/dL Hemoglobin A1c 6.7 H (4.3-5.7) % Calcium 9.0 (8.5-10.1) mg/dL Total Bilirubin 0.4 (0.2-1.0) mg/dL AST 14 L (15-37) U/L ALT 26 (12-78) U/L Alkaline Phosphatase 80 (46-116) IU/L Creatine Kinase 109 (26-308) U/L Creatine Kinase Index 1.0 (0.0-2.5) % CK-MB (CK-2) 1.10 (0.00-3.60) ng/mL Troponin I 0.007 (0.000-0.056) ng/mL Total Protein 7.0 (6.4-8.2) g/dL Albumin 3.7 (3.4-5.0) g/dL Triglycerides 220 H (30-150) mg/dL Cholesterol 224 H (100-200) mg/dL LDL Cholesterol, Calc 134 H (0-100) mg/dL HDL Cholesterol 46 (40-60) mg/dL Laboratory Tests 09/23/17 09/23/17 09/23/17 Range/Units 20:15 20:15 20:15 WBC 8.7 (4.0-10.2) K/uL RBC 4.68 (3.77-5.09) M/uL Hgb 14.0 (11.7-15.5) g/dL Hct 40.7 (34.0-46.0) % MCV 87.0 (84.0-98.0) fL MCH 29.9 (28.2-33.3) pg MCHC 34.4 (31.7-36.0) g/dL RDW 12.7 (11.2-14.1) % Plt Count 273 (150-350) K/uL Neut % (Auto) 54.5 (45.0-80.0) % Lymph % (Auto) 37.1 (10.0-50.0) % [place] % (Auto) 5.4 (2.0-14.0) % Eos % (Auto) 2.5 (0.0-5.0) % Baso % (Auto) 0.5 (0.0-2.0) % Neut # (Auto) 4.76 (1.40-7.00) K/uL Lymph # (Auto) 3.24 (0.50-3.50) K/uL [place] # (Auto) 0.47 (0.00-1.00) K/uL Eos # (Auto) 0.22 (0.00-0.50) K/uL Baso # (Auto) 0.04 (0.00-0.20) K/uL PT 9.9 (9.8-11.7) SEC INR 0.9 APTT 23.1 (22.1-29.8) SEC D-Dimer, Quantitative 193 (0-400) ng/mL Sodium (136-145) mmol/L Potassium (3.5-5.1) mmol/L Chloride (98-107) mmol/L Carbon Dioxide (21.0-32.0) mmol/L BUN (7-18) mg/dL Creatinine (0.51-1.17) mg/dL Est Cr Clr Drug Dosing mL/min Estimated GFR (MDRD) mL/min Glucose (74-106) mg/dL Hemoglobin A1c (4.3-5.7) % Lactic Acid (0.4-2.0) mmol/L Uric Acid (2.6-7.2) mg/dL Calcium (8.5-10.1) mg/dL Magnesium (1.8-2.4) mg/dL Total Bilirubin (0.2-1.0) mg/dL AST (15-37) U/L ALT (12-78) U/L Alkaline Phosphatase (46-116) IU/L Creatine Kinase (26-308) U/L Creatine Kinase Index (0.0-2.5) % CK-MB (CK-2) (0.00-3.60) ng/mL Troponin I (0.000-0.056) ng/mL NT-Pro-B Natriuret Pep (0-125) pg/mL Total Protein (6.4-8.2) g/dL Albumin (3.4-5.0) g/dL Triglycerides (30-150) mg/dL Cholesterol (100-200) mg/dL LDL Cholesterol, Calc (0-100) mg/dL HDL Cholesterol (40-60) mg/dL TSH, Ultra Sensitive (0.358-3.740) mIU/mL Specimen Type Urine Color Urine Appearance Urine pH (5.0-9.0) Ur Specific [place] (1.005-1.030) Urine Protein (NEGATIVE) mg/dL Urine Glucose (UA) (NEGATIVE) mg/dL Urine Ketones (NEGATIVE) mg/dL Urine Occult Blood (NEGATIVE) Urine Nitrite (NEGATIVE) Urine Bilirubin (NEGATIVE) Urine Urobilinogen (0.2-1.0) E.U./dL Ur Leukocyte Esterase (NEGATIVE) Urine RBC /HPF Urine WBC /HPF Ur Epithelial Cells /LPF Urine Bacteria (NONE TO FEW) /HPF 09/23/17 09/23/17 09/23/17 Range/Units 20:15 20:15 22:00 WBC (4.0-10.2) K/uL RBC (3.77-5.09) M/uL Hgb (11.7-15.5) g/dL Hct (34.0-46.0) % MCV (84.0-98.0) fL MCH (28.2-33.3) pg MCHC (31.7-36.0) g/dL RDW (11.2-14.1) % Plt Count (150-350) K/uL Neut % (Auto) (45.0-80.0) % Lymph % (Auto) (10.0-50.0) % [place] % (Auto) (2.0-14.0) % Eos % (Auto) (0.0-5.0) % Baso % (Auto) (0.0-2.0) % Neut # (Auto) (1.40-7.00) K/uL Lymph # (Auto) (0.50-3.50) K/uL [place] # (Auto) (0.00-1.00) K/uL Eos # (Auto) (0.00-0.50) K/uL Baso # (Auto) (0.00-0.20) K/uL PT (9.8-11.7) SEC INR APTT (22.1-29.8) SEC D-Dimer, Quantitative (0-400) ng/mL Sodium 138 (136-145) mmol/L Potassium 3.9 (3.5-5.1) mmol/L Chloride 101 (98-107) mmol/L Carbon Dioxide 24.4 (21.0-32.0) mmol/L BUN 14 (7-18) mg/dL Creatinine 0.86 (0.51-1.17) mg/dL Est Cr Clr Drug Dosing 60.25 mL/min Estimated GFR (MDRD) > 60 mL/min Glucose 160 H (74-106) mg/dL Hemoglobin A1c (4.3-5.7) % Lactic Acid 1.8 (0.4-2.0) mmol/L Uric Acid 4.4 (2.6-7.2) mg/dL Calcium 9.1 (8.5-10.1) mg/dL Magnesium 1.9 (1.8-2.4) mg/dL Total Bilirubin 0.3 (0.2-1.0) mg/dL AST 16 (15-37) U/L ALT 26 (12-78) U/L Alkaline Phosphatase 84 (46-116) IU/L Creatine Kinase 138 (26-308) U/L Creatine Kinase Index 0.9 (0.0-2.5) % CK-MB (CK-2) 1.20 (0.00-3.60) ng/mL Troponin I 0.002 (0.000-0.056) ng/mL NT-Pro-B Natriuret Pep 41 (0-125) pg/mL Total Protein 7.2 (6.4-8.2) g/dL Albumin 3.9 (3.4-5.0) g/dL Triglycerides (30-150) mg/dL Cholesterol (100-200) mg/dL LDL Cholesterol, Calc (0-100) mg/dL HDL Cholesterol (40-60) mg/dL TSH, Ultra Sensitive 4.982 H (0.358-3.740) mIU/mL Specimen Type Urincc Urine Color Light yellow Urine Appearance Clear Urine pH 7.0 (5.0-9.0) Ur Specific [place] 1.015 (1.005-1.030) Urine Protein Negative (NEGATIVE) mg/dL Urine Glucose (UA) Negative (NEGATIVE) mg/dL Urine Ketones Negative (NEGATIVE) mg/dL Urine Occult Blood Trace-lysed H (NEGATIVE) Urine Nitrite Negative (NEGATIVE) Urine Bilirubin Negative (NEGATIVE) Urine Urobilinogen 0.2 (0.2-1.0) E.U./dL Ur Leukocyte Esterase Trace H (NEGATIVE) Urine RBC 0-5 /HPF Urine WBC 0-5 /HPF Ur Epithelial Cells Rare /LPF Urine Bacteria Few (NONE TO FEW) /HPF 09/24/17 09/24/17 09/24/17 Range/Units 07:18 07:18 07:18 WBC 7.2 (4.0-10.2) K/uL RBC 4.84 (3.77-5.09) M/uL Hgb 14.4 (11.7-15.5) g/dL Hct 42.2 (34.0-46.0) % MCV 87.2 (84.0-98.0) fL MCH 29.8 (28.2-33.3) pg MCHC 34.1 (31.7-36.0) g/dL RDW 12.9 (11.2-14.1) % Plt Count 259 (150-350) K/uL Neut % (Auto) 59.7 (45.0-80.0) % Lymph % (Auto) 29.7 (10.0-50.0) % [place] % (Auto) 7.3 (2.0-14.0) % Eos % (Auto) 2.9 (0.0-5.0) % Baso % (Auto) 0.4 (0.0-2.0) % Neut # (Auto) 4.31 (1.40-7.00) K/uL Lymph # (Auto) 2.15 (0.50-3.50) K/uL [place] # (Auto) 0.53 (0.00-1.00) K/uL Eos # (Auto) 0.21 (0.00-0.50) K/uL Baso # (Auto) 0.03 (0.00-0.20) K/uL PT (9.8-11.7) SEC INR APTT (22.1-29.8) SEC D-Dimer, Quantitative (0-400) ng/mL Sodium 139 (136-145) mmol/L Potassium 4.0 (3.5-5.1) mmol/L Chloride 102 (98-107) mmol/L Carbon Dioxide 29.3 (21.0-32.0) mmol/L BUN 12 (7-18) mg/dL Creatinine 0.77 (0.51-1.17) mg/dL Est Cr Clr Drug Dosing 67.29 mL/min Estimated GFR (MDRD) > 60 mL/min Glucose 127 H (74-106) mg/dL Hemoglobin A1c 6.7 H (4.3-5.7) % Lactic Acid (0.4-2.0) mmol/L Uric Acid (2.6-7.2) mg/dL Calcium 9.0 (8.5-10.1) mg/dL Magnesium (1.8-2.4) mg/dL Total Bilirubin 0.4 (0.2-1.0) mg/dL AST 14 L (15-37) U/L ALT 26 (12-78) U/L Alkaline Phosphatase 80 (46-116) IU/L Creatine Kinase 109 (26-308) U/L Creatine Kinase Index 1.0 (0.0-2.5) % CK-MB (CK-2) 1.10 (0.00-3.60) ng/mL Troponin I 0.007 (0.000-0.056) ng/mL NT-Pro-B Natriuret Pep (0-125) pg/mL Total Protein 7.0 (6.4-8.2) g/dL Albumin 3.7 (3.4-5.0) g/dL Triglycerides 220 H (30-150) mg/dL Cholesterol 224 H (100-200) mg/dL LDL Cholesterol, Calc 134 H (0-100) mg/dL HDL Cholesterol 46 (40-60) mg/dL TSH, Ultra Sensitive (0.358-3.740) mIU/mL Specimen Type Urine Color Urine Appearance Urine pH (5.0-9.0) Ur Specific [place] (1.005-1.030) Urine Protein (NEGATIVE) mg/dL Urine Glucose (UA) (NEGATIVE) mg/dL Urine Ketones (NEGATIVE) mg/dL Urine Occult Blood (NEGATIVE) Urine Nitrite (NEGATIVE) Urine Bilirubin (NEGATIVE) Urine Urobilinogen (0.2-1.0) E.U./dL Ur Leukocyte Esterase (NEGATIVE) Urine RBC /HPF Urine WBC /HPF Ur Epithelial Cells /LPF Urine Bacteria (NONE TO FEW) /HPF 09/24/17 Range/Units 12:45 WBC (4.0-10.2) K/uL RBC (3.77-5.09) M/uL Hgb (11.7-15.5) g/dL Hct (34.0-46.0) % MCV (84.0-98.0) fL MCH (28.2-33.3) pg MCHC (31.7-36.0) g/dL RDW (11.2-14.1) % Plt Count (150-350) K/uL Neut % (Auto) (45.0-80.0) % Lymph % (Auto) (10.0-50.0) % [place] % (Auto) (2.0-14.0) % Eos % (Auto) (0.0-5.0) % Baso % (Auto) (0.0-2.0) % Neut # (Auto) (1.40-7.00) K/uL Lymph # (Auto) (0.50-3.50) K/uL [place] # (Auto) (0.00-1.00) K/uL Eos # (Auto) (0.00-0.50) K/uL Baso # (Auto) (0.00-0.20) K/uL PT (9.8-11.7) SEC INR APTT (22.1-29.8) SEC D-Dimer, Quantitative (0-400) ng/mL Sodium (136-145) mmol/L Potassium (3.5-5.1) mmol/L Chloride (98-107) mmol/L Carbon Dioxide (21.0-32.0) mmol/L BUN (7-18) mg/dL Creatinine (0.51-1.17) mg/dL Est Cr Clr Drug Dosing mL/min Estimated GFR (MDRD) mL/min Glucose (74-106) mg/dL Hemoglobin A1c (4.3-5.7) % Lactic Acid (0.4-2.0) mmol/L Uric Acid (2.6-7.2) mg/dL Calcium (8.5-10.1) mg/dL Magnesium (1.8-2.4) mg/dL Total Bilirubin (0.2-1.0) mg/dL AST (15-37) U/L ALT (12-78) U/L Alkaline Phosphatase (46-116) IU/L Creatine Kinase 117 (26-308) U/L Creatine Kinase Index 0.9 (0.0-2.5) % CK-MB (CK-2) 1.00 (0.00-3.60) ng/mL Troponin I 0.005 (0.000-0.056) ng/mL NT-Pro-B Natriuret Pep (0-125) pg/mL Total Protein (6.4-8.2) g/dL Albumin (3.4-5.0) g/dL Triglycerides (30-150) mg/dL Cholesterol (100-200) mg/dL LDL Cholesterol, Calc (0-100) mg/dL HDL Cholesterol (40-60) mg/dL TSH, Ultra Sensitive (0.358-3.740) mIU/mL Specimen Type Urine Color Urine Appearance Urine pH (5.0-9.0) Ur Specific [place] (1.005-1.030) Urine Protein (NEGATIVE) mg/dL Urine Glucose (UA) (NEGATIVE) mg/dL Urine Ketones (NEGATIVE) mg/dL Urine Occult Blood (NEGATIVE) Urine Nitrite (NEGATIVE) Urine Bilirubin (NEGATIVE) Urine Urobilinogen (0.2-1.0) E.U./dL Ur Leukocyte Esterase (NEGATIVE) Urine RBC /HPF Urine WBC /HPF Ur Epithelial Cells /LPF Urine Bacteria (NONE TO FEW) /HPF ABE Results - Last 24 hrs: Microbiology 09/23/17 20:43 Throat Group A Streptococcus Rapid Screen - Final NEGATIVE STREP A SCREEN 09/23/17 20:43 Nasal, Left Influenza Type A Antigen Screen - Final NEGATIVE INFLUENZA A VIRUS AG 09/23/17 20:43 Nasal, Left Influenza Type B Antigen Screen - Final NEGATIVE INFLUENZA B VIRUS AG Med Orders - Current: Current Medications Acetaminophen (Tylenol) 650 mg PO Q4H PRN PRN Reason: Pain Fluoxetine HCl (Prozac) 20 mg PO DAILY MICHELLE Levothyroxine Sodium (Synthroid) 50 mcg PO ACBREAKFAST MICHELLE Lisinopril (Prinivil) 10 mg PO DAILY MICHELLE Metoprolol Succinate (Toprol Xl) 25 mg PO BEDTIME MICHELLE Nitroglycerin (Nitrostat) 0.4 mg SL ONETIME STA Stop: 09/24/17 19:53 Last Admin: 09/23/17 20:13 Dose: 0.4 mg Simvastatin (Zocor) 20 mg PO BEDTIME MICHELLE Sodium Chloride (Saline Flush) 10 ml FLUSH ASDIRECTED PRN PRN Reason: Keep Vein Open Last Admin: 09/23/17 19:50 Dose: 10 ml Sodium Chloride (Saline Flush) 10 ml FLUSH Q12HR PRN PRN Reason: Keep Vein Open Temazepam (Restoril) 15 mg PO BEDTIME PRN PRN Reason: Insomnia Discontinued Medications Acetaminophen (Tylenol) 650 mg PO NOW ONE Stop: 09/23/17 20:16 Last Admin: 09/23/17 20:21 Dose: 650 mg Aspirin (Aspirin) 324 mg CHEW ONETIME ONE Stop: 09/23/17 19:35 Last Admin: 09/23/17 19:49 Dose: 324 mg Famotidine (Pepcid) 40 mg IVPUSH ONETIME ONE Stop: 09/23/17 19:35 Last Admin: 09/23/17 19:49 Dose: 40 mg Metoprolol Tartrate (Lopressor) 2.5 mg IVPUSH ONETIME ONE Stop: 09/23/17 19:35 Last Admin: 09/23/17 19:49 Dose: 2.5 mg Metoprolol Tartrate (Lopressor) 25 mg PO BID MICHELLE Last Admin: 09/23/17 22:38 Dose: 25 mg Nitroglycerin (Nitro-Bid 2%) 0.5 gm TOP Q6H MICHELLE Last Admin: 09/24/17 03:59 Dose: 0.5 gm Ticagrelor (Brilinta) 180 mg PO ONETIME ONE Stop: 09/23/17 19:35 Last Admin: 09/23/17 19:49 Dose: 180 mg Ticagrelor (Brilinta) Confirm Administered Dose 90 mg PO .STK-MED ONE Stop: 09/23/17 19:46 Last Admin: 09/23/17 20:10 Dose: Not Given - Exam Quality Assessment: Reports: Supplemental Oxygen, DVT Prophylaxis. Denies: Central Line/PICC, Urine Catheter, Skin Breakdown, Restraints General: Reports: Alert, Oriented, Cooperative, No Acute Distress HEENT: Reports: Pupils Equal, Pupils Reactive, EOMI, Mucous Membr. Moist/[place] Neck: Reports: Supple, Trachea Midline, No JVD, No Thyromegaly, +2 Carotid Pulse wo Bruit. Denies: Lymphadenopathy Lungs: Reports: Clear to Auscultation, Normal Respiratory Effort. Denies: Rub Cardiovascular: Reports: Regular Rate, Regular Rhythm, No Murmurs. Denies: Gallops, Rubs GI/Abdominal Exam: Normal Bowel Sounds, Soft, Non-Tender, No Organomegaly, No Distention, No Abnormal Bruit, No Mass, Pelvis Stable, Other (Obese). No: Guarding (Female) Exam: Deferred Rectal (Female) Exam: Deferred Back Exam: Reports: Normal Inspection, Full Range of Motion. Denies: CVA Tenderness (L), CVA Tenderness (R), Muscle Spasm Extremities: Normal Range of Motion, Non-Tender, No Pedal Edema, Normal Capillary Refill, Pedal Edema (Stable trace to +1 bilateral pedal/pretibial edema). No: Rony's Sign Skin: Reports: Warm, Dry, Intact. Denies: Ecchymosis Neurological: Reports: No New Focal Deficit Psy/Mental Status: Reports: Alert, Normal Affect, Normal Mood EKG INTERPRETATION EKG Date: 09/24/17 Time: 07:27 Rhythm: NSR Rate (Beats/Min): 60 Frakes: Normal (Left versus neutral cardiac axis) P-Wave: Present (Mild Diffuse biphasic P waves with poor R-wave progression in anterior leads) QRS: Normal (QRS interval of 0.09 seconds with T-wave inversion in lead V1) ST-T: Normal QT: Normal MD/PQ Interval: MD interval of 0.21 seconds representing a relatively stable first-degree AV block Comparison: No Change (Last EKG on 09/23/17) EKG Interpretation Comments: 1. No acute ischemic changes 2. First-degree AV block *Q Meaningful Use (DIS) - VTE *Q VTE Criteria *Q: - Stroke *Q Stroke Criteria *Q: - AMI *Q AMI Criteria *Q:
[2017-09-24 11:13] VITALS: BP 164/80
[2017-09-24] MEDS ORDERED: Simvastatin 20 MG Tab PO SCH (20:00)
[2017-09-24] MEDS ORDERED: Metoprolol Succinate 25 MG Tab.ER PO SCH (20:00)
== END 2017-09-24 14:32 | disposition home or self-care (01) ==
LOC: LL.ED 19:14 → LL.MS 21:30
PROVIDERS: ADMIT Family Medicine; ATTEND Family Medicine
DX: R07.2 Precordial pain (principal); I44.0 Atrioventricular block, first degree; I10 Essential (primary) hypertension; J45.20 Mild intermittent asthma, uncomplicated; R73.9 Hyperglycemia, unspecified; E03.9 Hypothyroidism, unspecified; F41.8 Other specified anxiety disorders; M15.0 Primary generalized (osteo)arthritis; K21.9 Gastro-esophageal reflux disease without esophagitis; J06.9 Acute upper respiratory infection, unspecified; Z79.899 Other long term (current) drug therapy; Z88.1 Allergy status to other antibiotic agents; Z88.8 Allergy status to other drugs, medicaments and biological substances
CPT/HCPCS: 36415; 71010; 80053; 80061; 81001; 82272; 82550; 82553; 83036; 83605; 83735; 83880; 84443; 84484; 84550; 85025; 85379; 85610; 85730; 87081; 87086; 87430; 87804; 93005; 96374; 96375; 99285; A9270; J7050; G0378; J3490; S0028

== ENCOUNTER 2018-06-30 09:10 | Emergency (ER) | payer BC ==
[2018-06-30 09:25] VITALS: BP 156/94
--- NOTE | 2018-06-30 10:29 | EDM.PDOC ---
ED HPI GENERAL MEDICAL PROBLEM - General Chief Complaint: Upper Extremity Injury/Pain Stated Complaint: Right hand pain Time Seen by Provider: 06/30/18 09:30 Source of Information: Reports: Patient History Limitations: Reports: No Limitations - History of Present Illness INITIAL COMMENTS - FREE TEXT/NARRATIVE: Patient is a 62-year-old who about 3 days ago fell on her hand and now complains of swelling and pain Onset: Gradual Duration: Day(s):, Getting Worse Location: Reports: Upper Extremity, Right Quality: Reports: Ache, Throbbing Severity: Mild Improves with: Reports: Cold Therapy Worsens with: Reports: Movement Context: Reports: Trauma (Fall) Associated Symptoms: Reports: No Other Symptoms Treatments 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: Other Medication(s) Right Hand Pain Score (Numeric/FACES): 6 - Related Data Allergies Allergy/AdvReac Type Severity Reaction Status Date / Time amoxicillin trihydrate Allergy Unknown Other Verified 09/23/17 19:21 [From Augmentin] hydrocodone bitartrate Allergy Unknown Other Verified 09/23/17 19:21 [From Lortab] potassium clavulanate Allergy Unknown Other Verified 09/23/17 19:21 [From Augmentin] Home Meds: Home Meds FLUoxetine HCl [Prozac] 20 mg PO DAILY 05/11/15 [History] Omeprazole/Sodium Bicarbonate [Zegerid 20 MG] 20 mg PO DAILY 05/11/15 [History] Acetaminophen [Tylenol] 650 mg PO Q4H PRN tablet 09/24/17 [Rx] Levothyroxine [Synthroid] 50 mcg PO ACBREAKFAST #60 tablet 09/24/17 [Rx] Lisinopril [Prinivil] 10 mg PO DAILY #30 tablet 09/24/17 [Rx] Metoprolol Succinate [Toprol XL] 25 mg PO BEDTIME #30 tab.er 09/24/17 [Rx] Past Medical History HEENT History: Reports: Impaired Vision, Other (See Below) Other HEENT History: She wears glasses Cardiovascular History: Reports: Heart Murmur, Hypertension, Other (See Below) Other Cardiovascular History: Benign heart murmur as a child with spontaneous resolution; borderline hypertension not requiring medical therapy to this point Respiratory History: Reports: Asthma, Intubation, Previous Gastrointestinal History: Reports: Cholelithiasis, Colon Polyp, Diverticulosis, Gastritis, GERD, Other (See Below) Other Gastrointestinal History: Hyperplastic colonic polyp at the hepatic flexure 09/09/04; recurrent hyperplastic gastric polyps initially diagnosed on ; previous history of diverticulitis with diverticulosis in the sigmoid region; History of fatty liver; esophagitis Genitourinary History: Reports: None REPLANTER History: Reports: Dysfunctional Uterine Bleeding, Polycystic Ovaries, Musculoskeletal History: Reports: Arthritis, Back Pain, Chronic, Fracture, Neck Pain, Chronic, Osteoarthritis, Other (See Below) Other Musculoskeletal History: Right rotator cuff tear requiring surgery as below; left hand fourth finger tuft fracture on 05/01/08 Neurological History: Reports: Headaches, Chronic, Migraines, Vertigo, Other ( See Below) Other Neuro History: Borderline Cerebral microvascular disease CT scan Psychiatric History: Reports: Anxiety, Depression Endocrine/Metabolic History: Reports: Obesity/BMI 30+ Hematologic History: Reports: None Immunologic History: Reports: None Oncologic (Cancer) History: Reports: None Dermatologic History: Reports: None - Infectious Disease History Infectious Disease History: Reports: Chicken Pox, Measles, Mumps, Scarlet Fever - Past Surgical History Head Surgeries/Procedures: Reports: None HEENT Surgical History: Reports: Adenoidectomy, Oral Surgery, Tonsillectomy, Other (See Below) Other HEENT Surgeries/Procedures: Tonsillectomy and adenoidectomy at about age 5 ; [place] teeth extraction 4 in the Cardiovascular Surgical History: Reports: None Respiratory Surgical History: Reports: None GI Surgical History: Reports: Cholecystectomy, Colonoscopy, EGD, Polypectomy, Other (See Below) Other GI Surgeries/Procedures: Colonoscopy with polypectomy at the hepatic flexure on 09/09/04 with follow-up colonoscopy on 08/31/08; initial EGD with gastric polyp excision on 10/23/03 with repeat EGD gastric polypectomy on 08/31/08 ; upper scopic cholecystectomy with adhesiolysis on 09/23/04 Female Surgical History: Reports: None Endocrine Surgical History: Reports: None Musculoskeletal Surgical History: Reports: Ganglion Cyst, Shoulder Surgery Oncologic Surgical History: Reports: None Dermatological Surgical History: Reports: None - Past Imaging History Past Imaging History: Reports: CAT Scan (CT of the brain on 01/24/14 with previous evaluation on 02/06/10; CT of the abdomen and pelvis on 05/16/15; CT of the neck soft tissue evaluation on 11/11/16;), Mammogram (Last mammogram on ), MRI (MRI of the right shoulder on 12/05/08), Ultrasound (Right axillary ultrasound on 10/21/13; multiple previous pelvic ultrasounds since 12/27/02 with last evaluation on 10/14/06; abdominal and additional gallbladder ultrasound on 08/13/04) Social & Family History - Family History HEENT: Reports: None Cardiac: Reports: Aneurysm, CAD, Hypertension, DC, Other (See Below) Other Cardiac Family History: Father was history of DC 2 at age 55 with no procedures required; AAA repair in his 60s; hypertension in parents; Respiratory: Reports: None GI: Reports: Colon Polyps, GI bleed, PUD, Other (See Below) Other GI Family History: Father with history of GI bleed secondary to peptic ulcer disease: Father with history of colonic polyps : Reports: None OBGYN: Reports: None Musculoskeletal: Reports: None Neurological: Reports: Alzheimers Disease, Dementia, Parkinson's, Other (See Below) Other Neurological Family History: Mother with Alzheimer's disease; father with migraine headaches; Mom with Parkinson's disease Psychiatric: Reports: None Endocrine/Metabolic: Reports: Diabetes, type II, Hypothyroidism, Other (See Below) Other Endocrine/Metabolic Family History: Mother with hypothyroidism; parents with AODM Hematologic: Reports: None Immunologic: Reports: None Dermatologic: Reports: None Oncologic: Reports: Breast, Lung, Other (See Below) Other Oncologic Family History: Father with fatal lung cancer at age 75 with history of tobacco use; Maternal aunt with breast cancer in her 50s; maternal aunt with fatal stomach cancer in her 70s - Tobacco Use Smoking Status *Q: Never Smoker Second Hand Smoke Exposure: No - Caffeine Use Caffeine Use: Reports: Coffee, Soda - Recreational Drug Use Recreational Drug Use: No - Living Situation & Occupation Living situation: Reports: (1975, 3 children,), with Family () 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61) Review of Systems - Review of Systems Review Of Systems: See Below Constitutional: Reports: No Symptoms Eyes: Reports: No Symptoms Ears: Reports: No Symptoms Nose: Reports: No Symptoms Mouth/Throat: Reports: No Symptoms Respiratory: Reports: No Symptoms Cardiovascular: Reports: No Symptoms GI/Abdominal: Reports: No Symptoms Genitourinary: Reports: No Symptoms Musculoskeletal: Reports: No Symptoms Skin: Reports: No Symptoms Neurological: Reports: No Symptoms Psychiatric: Reports: No Symptoms ED EXAM, GENERAL - Physical Exam Exam: See Below Exam Limited By: No Limitations General Appearance: Alert, WD/WN, No Apparent Distress Ears: Normal External Exam, Normal Canal, Hearing Grossly Normal, Normal TMs Ear Exam: Bilateral Ear: Auricle Normal, Canal Normal, TM normal Nose: Normal Inspection, Normal Mucosa, No Blood Throat/Mouth: Normal Inspection, Normal Lips, Normal Teeth, Normal Gums, Normal Oropharynx, Normal Voice, No Airway Compromise Head: Atraumatic, Normocephalic Neck: Normal Inspection, Supple, Non-Tender, Full Range of Motion Respiratory/Chest: No Respiratory Distress, Lungs Clear, Normal Breath Sounds, No Accessory Muscle Use, Chest Non-Tender Cardiovascular: Normal Peripheral Pulses, Regular Rate, Rhythm, No Edema, No Gallop, No JVD, No Murmur, No Rub GI/Abdominal: Normal Bowel Sounds, Soft, Non-Tender, No Organomegaly, No Distention, No Abnormal Bruit, No Mass (Female) Exam: Deferred Rectal (Female) Exam: Deferred Back Exam: Normal Inspection, Full Range of Motion, NT Extremities: Other (Right hand swelling) Neurological: Alert, Oriented, CN II-XII Intact, Normal Cognition, Normal Gait, Normal Reflexes, No Motor/Sensory Deficits Psychiatric: Normal Affect, Normal Mood Skin Exam: Warm, Dry Lymphatic: No Adenopathy ED TRAUMA EXTREMITY PROCEDURES - Additional/Other Procedure(s) Other (Free Text) Procedure(s): Swelling of right hand with edema has excellent range of motion significant swelling of ring finger she has a ring that seems to be extremely tight and may be compromising her blood supply the ring was removed and given back to the patient Course - Vital Signs Last Recorded V/S: Last Vital Signs Temp 98.4 F 06/30/18 09:21 Pulse 114 H 06/30/18 09:21 Resp 18 06/30/18 09:21 BP 156/94 H 06/30/18 09:21 Pulse Ox 100 06/30/18 09:21 - Orders/Labs/Meds Orders: Active Orders 24 hr Category Date Time Status Hand Comp Min 3V Rt [CR] Stat Exams 06/30/18 09:33 Taken Departure - Departure Time of Disposition: 10:32 Disposition: Home, Self-Care 01 Clinical Impression: Right wrist sprain - Discharge Information *PRESCRIPTION DRUG MONITORING PROGRAM REVIEWED*: No *COPY OF PRESCRIPTION DRUG MONITORING REPORT IN PATIENT PREET: No Instructions: Wrist Sprain, Adult Referrals: Urmila Li PA [Primary Care Provider] - Care Plan Goals: Patient will be sent home with a splint she is to ice it and take Motrin for swelling and pain follow-up as needed with primary - My Orders Last 24 Hours: My Active Orders 06/30/18 09:33 Hand Comp Min 3V Rt [CR] Stat - Assessment/Plan Last 24 Hours: My Active Orders 06/30/18 09:33 Hand Comp Min 3V Rt [CR] Stat
== END 2018-06-30 10:40 | disposition home or self-care (01) ==
LOC: LL.ED 09:10
DX: S63.501A Unspecified sprain of right wrist, initial encounter (principal); I10 Essential (primary) hypertension; E66.9 Obesity, unspecified; Z88.1 Allergy status to other antibiotic agents; Z88.8 Allergy status to other drugs, medicaments and biological substances; Z79.899 Other long term (current) drug therapy; W19.XXXA Unspecified fall, initial encounter
CPT/HCPCS: 73130-RT; 99283

== ENCOUNTER 2020-02-26 21:02 | Emergency (ER) | payer BC ==
[2020-02-26 21:11] VITALS: BP 143/80; PULSE 85
[2020-02-26] MEDS ORDERED: predniSONE 20 MG Tab PO ONE (21:36)
[2020-02-26] MEDS ORDERED: Doxycycline 100 MG Cap PO ONE (21:38)
[2020-02-26] MEDS ORDERED: diphenhydrAMINE 25 MG Cap PO ONE (21:38)
[2020-02-26] MEDS ORDERED: Mupirocin Oint 22 GM Tube TOP ONE (21:44)
--- NOTE | 2020-02-26 21:45 | EDM.PDOC ---
ED HPI GENERAL MEDICAL PROBLEM - General Chief Complaint: General Stated Complaint: Tick bite Time Seen by Provider: 02/26/20 21:06 Source of Information: Reports: Patient History Limitations: Reports: No Limitations - History of Present Illness INITIAL COMMENTS - FREE TEXT/NARRATIVE: Patient here complaining of redness/itching/swelling under right buttock in area where she removed a regular sized tick on , 3 days ago. Gradual increased in symptoms over the last few days. No fever/chills. Has mild headache today. No other acute changes. - Related Data Allergies Allergy/AdvReac Type Severity Reaction Status Date / Time amoxicillin trihydrate Allergy Unknown Other Verified 02/26/20 21:12 [From Augmentin] hydrocodone bitartrate Allergy Unknown Other Verified 02/26/20 21:12 [From Lortab] potassium clavulanate Allergy Unknown Other Verified 02/26/20 21:12 [From Augmentin] Home Meds: Home Meds Lisinopril [Prinivil] 10 mg PO DAILY #30 tablet 09/24/17 [Rx] Metoprolol Succinate [Toprol XL] 25 mg PO BEDTIME #30 tab.er 09/24/17 [Rx] Doxycycline [Vibra-Tabs] 100 mg PO Q12HR #20 tab 02/26/20 [Rx] Losartan Potassium 50 mg PO BID 02/26/20 [History] metFORMIN [Glucophage] 1,000 mg PO DAILY 02/26/20 [History] metFORMIN [Glucophage] 500 mg PO ACDINNER 02/26/20 [History] predniSONE 20 mg PO DAILY #3 tab 02/26/20 [Rx] Past Medical History HEENT History: Reports: Impaired Vision, Other (See Below) Other HEENT History: She wears glasses Cardiovascular History: Reports: Heart Murmur, Hypertension, Other (See Below) Other Cardiovascular History: Benign heart murmur as a child with spontaneous resolution; borderline hypertension not requiring medical therapy to this point Respiratory History: Reports: Asthma, Intubation, Previous Gastrointestinal History: Reports: Cholelithiasis, Colon Polyp, Diverticulosis, Gastritis, GERD, Other (See Below) Other Gastrointestinal History: Hyperplastic colonic polyp at the hepatic flexure 09/09/04; recurrent hyperplastic gastric polyps initially diagnosed on ; previous history of diverticulitis with diverticulosis in the sigmoid region; History of fatty liver; esophagitis Genitourinary History: Reports: None [place] 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: Dysfunctional Uterine Bleeding, Polycystic Ovaries, Musculoskeletal History: Reports: Arthritis, Back Pain, Chronic, Fracture, Neck Pain, Chronic, Osteoarthritis, Other (See Below) Other Musculoskeletal History: Right rotator cuff tear requiring surgery as below; left hand fourth finger tuft fracture on 05/01/08 Neurological History: Reports: Headaches, Chronic, Migraines, Vertigo, Other ( See Below) Other Neuro History: Borderline Cerebral microvascular disease CT scan Psychiatric History: Reports: Anxiety, Depression Endocrine/Metabolic History: Reports: Obesity/BMI 30+ Hematologic History: Reports: None Immunologic History: Reports: None Oncologic (Cancer) History: Reports: None Dermatologic History: Reports: None - Infectious Disease History Infectious Disease History: Reports: Chicken Pox, Measles, Mumps, Scarlet Fever - Past Surgical History Head Surgeries/Procedures: Reports: None HEENT Surgical History: Reports: Adenoidectomy, Oral Surgery, Tonsillectomy, Other (See Below) Other HEENT Surgeries/Procedures: Tonsillectomy and adenoidectomy at about age 5 ; [place] teeth extraction 4 in the Cardiovascular Surgical History: Reports: None Respiratory Surgical History: Reports: None GI Surgical History: Reports: Cholecystectomy, Colonoscopy, EGD, Polypectomy, Other (See Below) Other GI Surgeries/Procedures: Colonoscopy with polypectomy at the hepatic flexure on 09/09/04 with follow-up colonoscopy on 08/31/08; initial EGD with gastric polyp excision on 10/23/03 with repeat EGD gastric polypectomy on 08/31/08 ; upper scopic cholecystectomy with adhesiolysis on 09/23/04 Female Surgical History: Reports: None Endocrine Surgical History: Reports: None Musculoskeletal Surgical History: Reports: Ganglion Cyst, Shoulder Surgery Oncologic Surgical History: Reports: None Dermatological Surgical History: Reports: None - Past Imaging History Past Imaging History: Reports: CAT Scan (CT of the brain on 01/24/14 with previous evaluation on 02/06/10; CT of the abdomen and pelvis on 05/16/15; CT of the neck soft tissue evaluation on 11/11/16;), Mammogram (Last mammogram on ), MRI (MRI of the right shoulder on 12/05/08), Ultrasound (Right axillary ultrasound on 10/21/13; multiple previous pelvic ultrasounds since 12/27/02 with last evaluation on 10/14/06; abdominal and additional gallbladder ultrasound on 08/13/04) Social & Family History - Family History HEENT: Reports: None Cardiac: Reports: Aneurysm, CAD, Hypertension, GA, Other (See Below) Other Cardiac Family History: Father was history of GA 2 at age 55 with no procedures required; AAA repair in his 60s; hypertension in parents; Respiratory: Reports: None GI: Reports: Colon Polyps, GI bleed, PUD, Other (See Below) Other GI Family History: Father with history of GI bleed secondary to peptic ulcer disease: Father with history of colonic polyps : Reports: None OBGYN: Reports: None Musculoskeletal: Reports: None Neurological: Reports: Alzheimers Disease, Dementia, Parkinson's, Other (See Below) Other Neurological Family History: Mother with Alzheimer's disease; father with migraine headaches; Mom with Parkinson's disease Psychiatric: Reports: None Endocrine/Metabolic: Reports: Diabetes, type II, Hypothyroidism, Other (See Below) Other Endocrine/Metabolic Family History: Mother with hypothyroidism; parents with AODM Hematologic: Reports: None Immunologic: Reports: None Dermatologic: Reports: None Oncologic: Reports: Breast, Lung, Other (See Below) Other Oncologic Family History: Father with fatal lung cancer at age 75 with history of tobacco use; Maternal aunt with breast cancer in her 50s; maternal aunt with fatal stomach cancer in her 70s - Tobacco Use Smoking Status *Q: Former Smoker Used Tobacco, but Quit: Yes Month/Year Tobacco Last Used: 45 yrs Second Hand Smoke Exposure: No - Caffeine Use Caffeine Use: Reports: Coffee - Recreational Drug Use Recreational Drug Use: No - Living Situation & Occupation Living situation: Reports: (1975, 3 children,), with Family () 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61) ED ROS GENERAL - Review of Systems Review Of Systems: See Below Constitutional: Denies: Fever, Chills, Malaise, Weakness, Fatigue, Night Sweats , Diaphoresis, Decreased Appetite HEENT: Reports: Other (no acute changes) Respiratory: Reports: No Symptoms Cardiovascular: Reports: No Symptoms GI/Abdominal: Reports: Other (no acute changes) : Reports: No Symptoms Musculoskeletal: Denies: Joint Pain Skin: Reports: Pruritis, Erythema Neurological: Reports: Headache Psychiatric: Reports: No Symptoms Hematologic/Lymphatic: Reports: No Symptoms ED EXAM, GENERAL - Physical Exam Exam: See Below Exam Limited By: No Limitations General Appearance: Alert, WD/WN, No Apparent Distress Eye Exam: Bilateral Eye: EOMI, PERRL Ears: Hearing Grossly Normal Nose: No: Nasal Deformity, Nasal Swelling, Nasal Drainage Throat/Mouth: Normal Lips, Normal Voice, No Airway Compromise Head: Atraumatic, Normocephalic Neck: Supple, Full Range of Motion Respiratory/Chest: No Respiratory Distress, Lungs Clear, Normal Breath Sounds, No Accessory Muscle Use Cardiovascular: Regular Rate, Rhythm, No Murmur GI/Abdominal: Soft, Non-Tender (Female) Exam: Deferred Rectal (Female) Exam: Deferred Back Exam: No: Muscle Spasm Extremities: Normal Capillary Refill, Other (large confluent area of swelling/ erythema located on inner posterior right thigh just under buttocks. No skin breakdown/drainage/blisters/scaling noted. Slightly warm to touch. ) Neurological: Alert, Oriented, Normal Cognition Psychiatric: Normal Affect, Normal Mood Skin Exam: Warm, Other (see above. Also noted thin line of redness in crease of right thigh that has not blisters/drainage/crusting. ) Course - Vital Signs Last Recorded V/S: Last Vital Signs Temp 37.6 C 02/26/20 21:03 Pulse 85 02/26/20 21:03 Resp 16 02/26/20 21:03 BP 143/80 H 02/26/20 21:03 Pulse Ox 98 02/26/20 21:03 - Orders/Labs/Meds Meds: Medications Discontinued Medications Generic Name Dose Route Start Last Admin Trade Name Ankita PRN Reason Stop Dose Admin Diphenhydramine HCl 50 mg 02/26/20 21:38 Benadryl PO 02/26/20 21:39 ONETIME ONE Doxycycline Hyclate 100 mg 02/26/20 21:38 Vibramycin PO 02/26/20 21:39 ONETIME ONE Mupirocin 1 gm 02/26/20 21:44 Bactroban Oint TOP 02/26/20 21:45 ONETIME ONE Prednisone 40 mg 02/26/20 21:36 Prednisone PO 02/26/20 21:37 ONETIME ONE - Re-Assessments/Exams Free Text/Narrative Re-Assessment/Exam: 02/26/20 21:58 Patient appears to be having skin reaction to tick bite. No streaking/fevers to suggest cellulitis. Given large size of reaction and worsening will cover with Doxy for 10 days. First dose given in ER. Will also give short course Prednisone to help with swelling reaction and itch. Benadryl dose given to help with itching tonight. Precautions reviewed. To observe for changes and follow up as needed for any worsening problems or new concerns. To tile picker Rx for Doxy and Prednisone tomorrow. Departure - Departure Time of Disposition: 22:00 Disposition: Home, Self-Care 01 Condition: Good Clinical Impression: Insect bite of buttock with local reaction Qualifiers: Encounter type: initial encounter Qualified Code(s): S30.860A - Insect bite ( nonvenomous) of lower back and pelvis, initial encounter - Discharge Information *COPY OF PRESCRIPTION DRUG MONITORING REPORT IN PATIENT PREET: Not Applicable Prescriptions: Doxycycline [Vibra-Tabs] 100 mg PO Q12HR #20 tab predniSONE 20 mg PO DAILY #3 tab Instructions: Tick Bite Information, Adult, [id number] Referrals: Cami Hewitt NP [Primary Care Provider] - Forms: ED Department Discharge Additional Instructions: Watch for changes/new symptoms. Follow up as needed in ER if you have sudden worsening problems. Follow up with your primary provider if you have any additional concerns regarding tick bite and antibiotic course you were placed on tonight. Sepsis Event Note - Evaluation Sepsis Screening Result: No Definite Risk - Focused Exam Vital Signs: Vital Signs Temp Pulse Resp BP Pulse Ox 02/26/20 21:03 37.6 C 85 16 143/80 H 98 Date Exam was Performed: 02/26/20 Time Exam was Performed: 21:50
== END 2020-02-26 22:00 | disposition home or self-care (01) ==
LOC: LL.ED 21:02
DX: S30.860A Insect bite (nonvenomous) of lower back and pelvis, initial encounter (principal); I10 Essential (primary) hypertension; E66.9 Obesity, unspecified; Z87.891 Personal history of nicotine dependence; Z88.1 Allergy status to other antibiotic agents; Z88.5 Allergy status to narcotic agent; Z88.8 Allergy status to other drugs, medicaments and biological substances; Z79.899 Other long term (current) drug therapy; Z68.32 Body mass index [BMI] 32.0-32.9, adult; W57.XXXA Bitten or stung by nonvenomous insect and other nonvenomous arthropods, initial encounter
CPT/HCPCS: 99281; A9270; J7512

== ENCOUNTER 2024-01-28 09:36 | Day surgery (SDC) | payer BC, MEDICARE ==
[~2024-01-28 09:36] MED LIST: Midazolam 1 MG/ML 2 ML SDV ONE; Propofol 200 MG/20 ML SDV ONE
[2024-01-28] MEDS ORDERED: Sodium Chloride 0.9% 10 ML Syringe FLUSH PRN (09:45)
[2024-01-28] MEDS: Lactated Ringers 1,000 ML IV SCH (10:10)
[2024-01-28 12:41] VITALS: BP 124/75; PULSE 70
== END 2024-01-28 12:15 | disposition home or self-care (01) ==
LOC: LL.SDS 09:36
PROVIDERS: ATTEND Surgery
DX: Z12.11 Encounter for screening for malignant neoplasm of colon (principal); D12.0 Benign neoplasm of cecum; K57.30 Diverticulosis of large intestine without perforation or abscess without bleeding; I10 Essential (primary) hypertension; E11.9 Type 2 diabetes mellitus without complications; Z87.891 Personal history of nicotine dependence; Z79.84 Long term (current) use of oral hypoglycemic drugs; Z79.85 Long-term (current) use of injectable non-insulin antidiabetic drugs; Z79.899 Other long term (current) drug therapy; Z86.010 Personal history of colon polyps
CPT/HCPCS: 00811; 82947; J2250; J2704; J7120